=== PATIENT | female | born 1985 | race Caucasian/White ===

== ENCOUNTER 2024-05-23 11:46 | Day surgery (SDC) | payer OTHER ==
[2024-05-19 15:44] VITALS: BMI 30.9
[2024-05-23] MEDS ORDERED: PROPOFOL 40 ML ONE (12:16)
[2024-05-23 13:35] VITALS: BP 110/74; PULSE 71; RESP 16; TEMP 97.4
== END 2024-05-23 13:39 | disposition home or self-care (01) ==
LOC: FASU-ENDO 11:46
PROVIDERS: ATTEND Internal Medicine Gastroenterology
PROC: 0DJD8ZZ Inspection of Lower Intestinal Tract, Via Natural or Artificial Opening Endoscopic (ICD-10-PCS; principal; 2024-05-23 12:37)
DX: K92.1 Melena (principal); K64.1 Second degree hemorrhoids
CPT/HCPCS: 81025